=== PATIENT | male | born 1990 | race Caucasian/White ===

== ENCOUNTER → 2017-04-06 | Outpatient (CLI) | payer OTHER ==
[2017-04-06 11:42] LABS: HEMOGLOBIN 14.8 gm/dl (14.0-17.5); RED BLOOD COUNT 4.97 M/UL (4.20-5.50)
[2017-04-06 12:04] LABS: BUN/CREATININE RATIO 12 (0-10)
== END ==
LOC: LAB 10:43
PROVIDERS: Family Medicine
DX: R07.89 Other chest pain (principal); E55.9 Vitamin D deficiency, unspecified; R53.83 Other fatigue
CPT/HCPCS: 36415; 71020; 80053; 82607; 84443; 85025; 85379